=== PATIENT | female | born 1965 | race Caucasian/White ===

== ENCOUNTER → 2017-05-11 | Outpatient (CLI) | payer BC ==
[2017-05-11 09:38] LABS: BLOOD UREA NITROGEN 9 mg/dL (7-22); BUN/CREATININE RATIO 12.85 (6-20); CALCIUM 9.5 mg/dL (8.7-10.7); CHOL/HDL RATIO 3.34 RATIO (0-4.0); EST GLOMERULAR FILTRATION > 60 (>60 ml/min/1.73m(2)); HDL CHOLESTEROL 64 mg/dL (40-150); SERUM ALBUMIN 4.2 g/dL (3.5-4.8); SERUM CHOLESTEROL 214 mg/dL (120-200)
[2017-05-11 09:43] LABS: BASOPHILS % (AUTO) 1.8 % (0-1); HEMATOCRIT 44.5 % (37.0-47.0); HEMOGLOBIN 14.8 g/dL (12.0-16.0); MEAN CORPUSCULAR HEMOGLOBIN 29.1 PG (27-31); MEAN CORPUSCULAR HGB CONC 33.3 g/dL (33-37); MEAN CORPUSCULAR VOLUME 87.4 FL (81-99); MEAN PLATELET VOLUME 11.3 FL (7.4-12.2); MONOCYTES % (AUTO) 6.8 % (5-15); NEUTROPHILS % (AUTO) 63.1 % (50-80); RED BLOOD COUNT 5.09 10^6/uL (4.20-5.40)
[2017-05-11 09:44] LABS: BASOPHILS # (AUTO) 0.15 10*3/UL; EOSINOPHILS # (AUTO) 0.84 10*3/UL; LYMPHOCYTES # (AUTO) 1.53 10*3/uL; MONOCYTES # (AUTO) 0.57 10*3/UL (0.3-0.8); NEUTROPHILS # (AUTO) 5.29 10*3/UL; PLATELET MORPHOLOGY COMMENT NORMAL MORPHOLOGY (NORM); RBC MORPHOLOGY COMMENT NORMAL MORPHOLOGY (NORM); WBC MORPHOLOGY COMMENT NORMAL MORPHOLOGY (NORM)
--- NOTE | 2017-05-11 10:32 | DI ---
ABDOMINAL ULTRASOUND, 05/11/2017 9:00 AM: Clinical History: Abdominal pain. Previous Exam: None at this facility. Scans are performed through the right and left upper quadrants in multiple projections. The gallbladder is well distended and has a normal wall thickness. There are no gall stones. Common b ile duct measures ?[id number],000. The visualized portions of the right and left lobes of the liver, both kidneys, and the spleen are normal. The head and body of the pancreas are visualized and that structu re is normal. The IVC and aorta are normal. READING: Normal abdominal ultrasound.
== END ==
LOC: US 08:53
PROVIDERS: ATTEND Obstetrics & Gynecology Gynecology
DX: R10.9 Unspecified abdominal pain (principal)
CPT/HCPCS: 36415; 76700; 80053; 80061; 84443; 85025